=== PATIENT | female | born 1960 | race Caucasian/White ===

== ENCOUNTER → 2022-02-26 | Outpatient (CLI) | payer OTHER ==
--- NOTE | 2022-02-26 09:19 | KCIC ---
EXAM: CT coronary artery calcium screening; radiologist over read. HISTORY: Coronary artery calcium screening. Dyslipidemia. TECHNIQUE: Computed tomographic images of the chest were obtained without contrast. Multiplanar refor matting was performed. *One or more of the following individualized dose reduction techniques were utilized for this examina tion: 1. Automated exposure control. 2. Adjustment of the mA and/or kV according to patient size. 3. Use of iterative reconstruction technique. COMPARISON: None. FINDINGS: The heart is normal in size. There is coronary artery calcification. The aorta is normal in caliber. There is no lymphadenopathy. There is no infiltrate, pleural effusion or pneumothorax. Ther e is linear right middle lobe and lingular atelectasis or scarring. There is no acute abdominal or os seous finding. Coronary artery calcium score: Left main artery - 0 Left anterior descending - 0.4 Left circumflex - 0 Right coronary artery - 0.1 Posterior descending artery - 0 TOTAL = 0.5 IMPRESSION: 1. Minimal coronary artery calcification. The coronary artery calcium score is less than 1. 2. No acute thoracic finding. Electronically signed by: Freya Peralta MD (02/26/2022 9:16 AM) [facility]
== END ==
LOC: KCIC CT 08:07
PROVIDERS: ATTEND Nurse Practitioner
DX: I25.10 Atherosclerotic heart disease of native coronary artery without angina pectoris (principal); E78.5 Hyperlipidemia, unspecified
CPT/HCPCS: 75571